=== PATIENT | female | born 1945 | race Two or more races ===

== ENCOUNTER 2019-07-24 15:19 | Inpatient (IN) | payer BC, MEDICARE, OTHER ==
[~2019-07-24] VITALS: Ht 160 cm; Wt 70.5 kg
[2019-07-24] MEDS ORDERED: SODIUM CHLORIDE 0.9% 1,000 ML IV ONE (19:08)
[2019-07-24] MEDS ORDERED: ACETAMINOPHEN 325MG TABLET PO STA (19:08)
[2019-07-24] MEDS ORDERED: FAMOTIDINE 20MG/2ML VIAL IV STA (19:08)
[2019-07-24] MEDS ORDERED: PIPERACILLIN/TAZ 3.375G PREMIX 50 ML IV ONE (19:30)
[2019-07-24] MEDS ORDERED: SODIUM CHLORIDE 0.9% 1000ML BAG (SEPSIS BOLUS) IV ONE (19:30)
[2019-07-24 19:54] LABS: HEMATOCRIT. 35.9 % (36.0-48.0); HEMOGLOBIN. 12.4 g/dL (12.0-16.0); MEAN CORPUSCULAR HEMOGLOBIN 31.5 pg (28.0-32.0); MEAN CORPUSCULAR VOLUME 91.2 fL (81.0-99.0); MEAN PLATELET VOLUME 7.8 fl (7.4-10.4); PLATELET 212 x1000/uL (130-400); RED BLOOD CELL COUNT 3.93 mill/uL (4.2-5.4); RED CELL DISTRIBUTION WIDTH 13.8 % (11.6-14.6)
[2019-07-24 20:02] LABS: CHLORIDE 105 mEq/L (98-107)
[2019-07-24 20:04] LABS: PROTHROMBIN TIME 10.3 sec (9.6-11.0)
[2019-07-24 21:16] LABS: PLATELET ESTIMATE NORMAL
[2019-07-24] MEDS ORDERED: IOHEXOL-300 100 ML BOTTLE ONE (21:56)
[2019-07-24 22:49] LABS: CLARITY URINE CLOUDY (CLEAR); COLOR URINE DARK YELLOW (YELLOW); KETONES URINE NEGATIVE (NEGATIVE); LEUKOCYTE ESTERASE URINE TRACE (NEGATIVE); NITRITE URINE NEGATIVE (NEGATIVE); OCCULT BLOOD URINE NEGATIVE (NEGATIVE); PH URINE 8.5 (4.5-8.0); PROTEIN URINE NEGATIVE (NEGATIVE); SPECIFIC GRAVITY URINE 1.033 (1.005-1.030)
[2019-07-24 23:30] VITALS: BP 119/45
[2019-07-24] MEDS ORDERED: SODIUM CHLORIDE 0.9% 1,000 ML IV SCH (23:45)
[2019-07-25] MEDS ORDERED: HYDROMORPHONE HCL/PF 2MG/ML CPJ IV PRN ×2
[2019-07-25 00:35] LABS: HEPATITIS B SURFACE ANTIGEN NEGATIVE
[2019-07-25 01:05] LABS: HEPATITIS A AB IGM NEGATIVE (NEGATIVE)
[2019-07-25] MEDS ORDERED: TRIC160 MT (01:06)
[2019-07-25] MEDS ORDERED: ESOM40CA PO (01:06)
[2019-07-25] MEDS ORDERED: CLOB15OI3 TP (01:06)
[2019-07-25] MEDS ORDERED: EZET10TA13 PO (01:06)
[2019-07-25] MEDS ORDERED: ASPI-1393 PO (01:06)
[2019-07-25] MEDS: POTASSIUM CHLORIDE INJ 30 MEQ in DEXT 5%/0.9% NACL 1,000 ML IV SCH ×4 (02:46→23:29)
[2019-07-25] MEDS: PIPERACILLIN/TAZOBACTAM 3.375 G in DEXT 5% WATER 100 ML IV SCH ×4 (03:42→20:12)
[2019-07-25 04:00] VITALS: BP 101/48
[2019-07-25 06:47] LABS: BASOPHILS % 0.3 % (0.0-2.0); HEMATOCRIT. 30.2 % (36.0-48.0); HEMOGLOBIN. 10.6 g/dL (12.0-16.0); LYMPHOCYTES % 9.5 % (20.0-50.0); MEAN CORPUSCULAR HEMOGLOBIN 32.1 pg (28.0-32.0); MEAN CORPUSCULAR VOLUME 91.1 fL (81.0-99.0); MONOCYTES % 10.9 % (2.0-8.0); NEUTROPHILS % 78.3 % (40.0-76.0); PLATELET 164 x1000/uL (130-400); RED BLOOD CELL COUNT 3.31 mill/uL (4.2-5.4); RED CELL DISTRIBUTION WIDTH 14.2 % (11.6-14.6)
[2019-07-25 06:59] LABS: CHLORIDE 109 mEq/L (98-107)
[2019-07-25 08:31] VITALS: BP 110/50
[2019-07-25] MEDS: PANTOPRAZOLE SODIUM 40 MG/VIAL IV SCH (09:45)
[2019-07-25] MEDS ORDERED: KCL 10MEQ/50ML PREMIX 50 ML IV NR (11:30)
[2019-07-25 12:36] VITALS: BP 103/61
[2019-07-25] MEDS: ONDANSETRON HCL 4MG/2ML INJ IV PRN (13:27)
[2019-07-25 16:17] VITALS: BP 126/65
[2019-07-25] MEDS: METRONIDAZOLE 500 MG PREMIX 100 ML IV SCH (17:20)
[2019-07-25 20:00] VITALS: BP 109/39
[2019-07-25] MEDS: ENOXAPARIN 40MG/0.4ML SYR SUBCUT SCH (20:13)
[2019-07-26] VITALS: BP 100/51
[2019-07-26] MEDS: KETOROLAC 15MG/ML VIAL IV PRN ×4 (00:34→22:29)
[2019-07-26] MEDS: PIPERACILLIN/TAZOBACTAM 3.375 G in DEXT 5% WATER 100 ML IV SCH ×2 (02:23→09:16)
[2019-07-26] MEDS: METRONIDAZOLE 500 MG PREMIX 100 ML IV SCH ×3 (03:08→18:05)
[2019-07-26 04:00] VITALS: BP 118/57
[2019-07-26 06:34] LABS: BASOPHILS % 0.3 % (0.0-2.0); EOSINOPHILS % 3.3 % (0.0-5.0); HEMATOCRIT. 32.3 % (36.0-48.0); HEMOGLOBIN. 11.1 g/dL (12.0-16.0); LYMPHOCYTES % 14.6 % (20.0-50.0); MEAN CORPUSCULAR HEMOGLOBIN 31.6 pg (28.0-32.0); MEAN PLATELET VOLUME 8.5 fl (7.4-10.4); MONOCYTES % 10.8 % (2.0-8.0); PLATELET 185 x1000/uL (130-400); RED BLOOD CELL COUNT 3.51 mill/uL (4.2-5.4); RED CELL DISTRIBUTION WIDTH 14.3 % (11.6-14.6)
[2019-07-26 06:36] LABS: CHLORIDE 112 mEq/L (98-107)
[2019-07-26 06:42] LABS: GAMMA GLUTAMYL TRANSPEPTIDASE 310 IU/L (7-32)
[2019-07-26 08:42] VITALS: BP 126/104
[2019-07-26] MEDS: PANTOPRAZOLE SODIUM 40 MG/VIAL IV SCH (09:15)
[2019-07-26] MEDS ORDERED: LEVOFLOXACIN 500MG PREMIX 100 ML IV SCH (12:00)
[2019-07-26 12:42] VITALS: BP 135/55
[2019-07-26] MEDS: POTASSIUM CHLORIDE INJ 30 MEQ in DEXT 5%/0.9% NACL 1,000 ML IV SCH ×2 (12:53→23:25)
[2019-07-26 16:17] VITALS: BP 97/41
[2019-07-26 20:00] VITALS: BP 141/65
[2019-07-26] MEDS: ENOXAPARIN 40MG/0.4ML SYR SUBCUT SCH (20:30)
[2019-07-26] MEDS: ONDANSETRON HCL 4MG/2ML INJ IV PRN (21:23)
[2019-07-27] VITALS: BP_SYST 129; BP_SYST 132; BP_DIAS 54; BP_DIAS 67
[2019-07-27] MEDS: METRONIDAZOLE 500 MG PREMIX 100 ML IV SCH ×3 (01:26→19:48)
[2019-07-27 04:00] VITALS: BP 141/63
[2019-07-27] MEDS: ONDANSETRON HCL 4MG/2ML INJ IV PRN ×2 (05:10→11:29)
[2019-07-27] MEDS: POTASSIUM CHLORIDE INJ 30 MEQ in DEXT 5%/0.9% NACL 1,000 ML IV SCH (06:07)
[2019-07-27 07:01] LABS: BASOPHILS % 1.1 % (0.0-2.0); HEMATOCRIT. 31.3 % (36.0-48.0); HEMOGLOBIN. 10.8 g/dL (12.0-16.0); LYMPHOCYTES % 23.8 % (20.0-50.0); MEAN CORPUSCULAR HEMOGLOBIN 31.4 pg (28.0-32.0); MEAN CORPUSCULAR VOLUME 91.6 fL (81.0-99.0); MEAN PLATELET VOLUME 8.6 fl (7.4-10.4); MONOCYTES % 13.7 % (2.0-8.0); NEUTROPHILS % 57.4 % (40.0-76.0); PLATELET 171 x1000/uL (130-400); RED BLOOD CELL COUNT 3.42 mill/uL (4.2-5.4); RED CELL DISTRIBUTION WIDTH 14.4 % (11.6-14.6)
[2019-07-27 07:04] LABS: CHLORIDE 115 mEq/L (98-107)
[2019-07-27 07:06] LABS: PARTIAL THROMBOPLASTIN TIME 28.8 sec (23.4-31.0); PROTHROMBIN TIME 10.4 sec (9.6-11.0)
[2019-07-27 08:00] VITALS: BP 140/77
[2019-07-27] MEDS: PANTOPRAZOLE SODIUM 40 MG/VIAL IV SCH (08:34)
[2019-07-27 12:00] VITALS: BP 166/65
[2019-07-27] MEDS: AZITHROMYCIN 500 MG in DEXT 5% WATER 250 ML IV SCH (12:21)
[2019-07-27] MEDS ORDERED: IOHEXOL-300 100 ML BOTTLE ONE (14:50)
[2019-07-27] MEDS ORDERED: SIMETHICONE 40 MG/0.6 ML 30ML ONE (14:50)
[2019-07-27] MEDS ORDERED: MIDAZOLAM HCL 2 MG/2 ML VIAL ONE (15:31)
[2019-07-27] MEDS ORDERED: PROPOFOL 200MG/20ML VIAL IV ONE (15:31)
[2019-07-27] MEDS ORDERED: FENTANYL CITRATE/PF 50MCG/ML 2ML VIAL ONE (15:31)
[2019-07-27] MEDS ORDERED: ROCURONIUM BROMIDE 10MG/ML VIAL 5ML IV ONE (15:31)
[2019-07-27] MEDS ORDERED: NEOSTIGMINE METHYLSULFATE 1MG/ML 10 ML VIAL ONE (15:31)
[2019-07-27] MEDS ORDERED: GLYCOPYRROLATE 0.2 MG/ML 2ML VIAL ONE ×2 (15:31→16:31)
[2019-07-27] MEDS ORDERED: ONDANSETRON HCL 4MG/2ML INJ ONE (15:57)
[2019-07-27] MEDS ORDERED: DEXAMETHASONE 4MG/ML 1ML VIAL ONE (15:57)
[2019-07-27] MEDS ORDERED: MEPERIDINE HCL/PF 25MG/ML CPJ IV PRN (16:15)
[2019-07-27] MEDS ORDERED: HYDROMORPHONE HCL/PF 2MG/ML CPJ IV PRN (16:15)
[2019-07-27] MEDS ORDERED: LABETALOL 5MG/ML SYR 20 MG/4 ML SYRINGE IV PRN (16:15)
[2019-07-27] MEDS ORDERED: ONDANSETRON HCL 4MG/2ML INJ IV PRN (16:15)
[2019-07-27 20:00] VITALS: BP 137/48
[2019-07-27] MEDS: ENOXAPARIN 40MG/0.4ML SYR SUBCUT SCH (21:48)
[2019-07-28] VITALS: BP 129/54
[2019-07-28] MEDS: METRONIDAZOLE 500 MG PREMIX 100 ML IV SCH (02:00)
[2019-07-28 04:00] VITALS: BP 137/60
[2019-07-28] MEDS: POTASSIUM CHLORIDE INJ 30 MEQ in DEXT 5%/0.9% NACL 1,000 ML IV SCH ×2 (04:13→16:25)
[2019-07-28 06:48] LABS: BASOPHILS % 0.5 % (0.0-2.0); EOSINOPHILS % 0.1 % (0.0-5.0); HEMATOCRIT. 30.7 % (36.0-48.0); HEMOGLOBIN. 10.5 g/dL (12.0-16.0); LYMPHOCYTES % 16.7 % (20.0-50.0); MEAN CORPUSCULAR HEMOGLOBIN 31.6 pg (28.0-32.0); MEAN PLATELET VOLUME 9.8 fl (7.4-10.4); MONOCYTES % 8.8 % (2.0-8.0); NEUTROPHILS % 73.9 % (40.0-76.0); PLATELET 201 x1000/uL (130-400); RED BLOOD CELL COUNT 3.33 mill/uL (4.2-5.4); RED CELL DISTRIBUTION WIDTH 13.9 % (11.6-14.6)
[2019-07-28 06:57] LABS: CHLORIDE 110 mEq/L (98-107)
[2019-07-28 08:08] VITALS: BP 145/64
[2019-07-28] MEDS ORDERED: TRAMADOL 50MG TABLET PO PRN (10:00)
[2019-07-28] MEDS: AZITHROMYCIN 500 MG in DEXT 5% WATER 250 ML IV SCH (11:53)
[2019-07-28] MEDS: PANTOPRAZOLE SODIUM 40 MG/VIAL IV SCH (11:53)
[2019-07-28 11:56] VITALS: BP 118/52
[2019-07-28] MEDS: METRONIDAZOLE 500MG TABLET PO SCH ×2 (15:11→21:55)
[2019-07-28] MEDS: MULTIVITAMINS,THER W-MINERALS TABLET PO SCH (15:11)
[2019-07-28 16:31] VITALS: BP 134/65
[2019-07-28 20:00] VITALS: BP 124/70
[2019-07-28] MEDS: ENOXAPARIN 40MG/0.4ML SYR SUBCUT SCH (21:55)
[2019-07-29] VITALS: BP 129/64
[2019-07-29] MEDS ORDERED: POTASSIUM CHLORIDE INJ 30 MEQ in DEXT 5%/0.9% NACL 1,000 ML IV SCH ×2
[2019-07-29 04:00] VITALS: BP 142/75
[2019-07-29] MEDS: METRONIDAZOLE 500MG TABLET PO SCH (06:32)
[2019-07-29 06:59] LABS: BASOPHILS % 0.8 % (0.0-2.0); EOSINOPHILS % 2.3 % (0.0-5.0); HEMATOCRIT. 32.2 % (36.0-48.0); HEMOGLOBIN. 11.1 g/dL (12.0-16.0); LYMPHOCYTES % 23.2 % (20.0-50.0); MEAN CORPUSCULAR HEMOGLOBIN 31.7 pg (28.0-32.0); MEAN CORPUSCULAR VOLUME 92.2 fL (81.0-99.0); MEAN PLATELET VOLUME 8.7 fl (7.4-10.4); MONOCYTES % 12.3 % (2.0-8.0); NEUTROPHILS % 61.4 % (40.0-76.0); PLATELET 191 x1000/uL (130-400); RED BLOOD CELL COUNT 3.49 mill/uL (4.2-5.4); RED CELL DISTRIBUTION WIDTH 14.3 % (11.6-14.6)
[2019-07-29 08:00] VITALS: BP 150/74
[2019-07-29] MEDS ORDERED: AZITHROMYCIN 500 MG TABLET PO SCH (09:00)
[2019-07-29] MEDS: PANTOPRAZOLE SODIUM 40 MG/VIAL IV SCH (09:09)
[2019-07-29] MEDS: MULTIVITAMINS,THER W-MINERALS TABLET PO SCH (09:09)
[2019-07-29] MEDS: ONDANSETRON HCL 4MG/2ML INJ IV PRN (09:09)
== END 2019-07-29 14:35 | disposition home or self-care (01) | DRG 872 ==
LOC: ER 15:51 → 6WST 22:43 → EDBEDREQ 22:46 → EDBEDREQTM 22:46 → ENRESERV 22:54 → 6WST 07-27 21:37
PROVIDERS: ADMIT Internal Medicine Critical Care Medicine; ATTEND Internal Medicine Critical Care Medicine
PROC: 0FJB8ZZ Inspection of Hepatobiliary Duct, Via Natural or Artificial Opening Endoscopic (ICD-10-PCS; principal; 2019-07-27)
DX: A41.9 Sepsis, unspecified organism (principal); K80.63 Calculus of gallbladder and bile duct with acute cholecystitis with obstruction; N39.0 Urinary tract infection, site not specified; K44.9 Diaphragmatic hernia without obstruction or gangrene; E78.5 Hyperlipidemia, unspecified; E77.8 Other disorders of glycoprotein metabolism; D53.9 Nutritional anemia, unspecified; E87.6 Hypokalemia; K76.0 Fatty (change of) liver, not elsewhere classified; T36.8X5A Adverse effect of other systemic antibiotics, initial encounter; Z96.659 Presence of unspecified artificial knee joint; K21.9 Gastro-esophageal reflux disease without esophagitis; N28.1 Cyst of kidney, acquired; Z90.710 Acquired absence of both cervix and uterus; Y92.89 Other specified places as the place of occurrence of the external cause; Z79.899 Other long term (current) drug therapy; Z88.0 Allergy status to penicillin; Z88.1 Allergy status to other antibiotic agents; Z98.84 Bariatric surgery status; Z79.82 Long term (current) use of aspirin
CPT/HCPCS: 36415; 71045; 74177; 74181; 76705; 78227; 80048; 80076; 81003; 82105; 82248; 82962; 82977; 83605; 86705; 86709; 86803; 87340; 93005; 96361; 96365; 96375; 99291; A9537; C1726; C1769; C9113; J0456; J1100; J1170; J1650; J1885; J1956; J2250; J2405; J2543; J2704; J2710; J3010; J3480; J3490; J7030; J7042; J7060; Q9967

== ENCOUNTER 2020-11-28 08:52 | Emergency (ER) | payer BC ==
[~2020-11-28] VITALS: Ht 167.6 cm; Wt 77.0 kg
[2020-11-28 09:25] LABS: CLARITY URINE CLEAR (CLEAR); COLOR URINE YELLOW (YELLOW); KETONES URINE NEGATIVE (NEGATIVE); LEUKOCYTE ESTERASE URINE TRACE (NEGATIVE); NITRITE URINE NEGATIVE (NEGATIVE); OCCULT BLOOD URINE NEGATIVE (NEGATIVE); PROTEIN URINE 1+ (NEGATIVE); SPECIFIC GRAVITY URINE 1.014 (1.005-1.030); UROBILINOGEN URINE 0.2 E.U./dL (0.2-1.0)
[2020-11-28 09:42] LABS: HEMATOCRIT. 33.4 % (36.0-48.0); HEMOGLOBIN. 11.2 g/dL (12.0-16.0); MEAN CORPUSCULAR HEMOGLOBIN 30.1 pg (28.0-32.0); MEAN CORPUSCULAR VOLUME 89.7 fL (81.0-99.0); MEAN PLATELET VOLUME 7.6 fl (7.4-10.4); PLATELET 250 x1000/uL (130-400); RED BLOOD CELL COUNT 3.73 mill/uL (4.2-5.4); RED CELL DISTRIBUTION WIDTH 13.6 % (11.6-14.6)
[2020-11-28 09:51] LABS: CHLORIDE 104 mEq/L (98-107)
[2020-11-28 10:00] LABS: CREATINE KINASE 58 IU/L (26-192)
[2020-11-28 10:02] LABS: PROTHROMBIN TIME 10.4 sec (9.6-11.0)
[2020-11-28 10:12] LABS: PLATELET ESTIMATE NORMAL
[2020-11-28] MEDS ORDERED: VANCOMYCIN 1 G PREMIX 200 ML IV SCH (10:45)
[2020-11-28] MEDS ORDERED: KETOROLAC 15MG/ML VIAL IV NR (10:45)
[2020-11-28] MEDS ORDERED: ONDANSETRON HCL 4MG/2ML INJ IV ONE (11:30)
[2020-11-28] MEDS ORDERED: SODIUM CHLORIDE 0.9% 1,000 ML IV ONE (11:30)
[2020-11-28] MEDS ORDERED: AZTREONAM 1 G in DEXTROSE 5% WATER 50 ML IV SCH (13:00)
[2020-11-28 14:19] VITALS: BP 95/39
[2020-11-28] MEDS ORDERED: IOHEXOL-300 100 ML BOTTLE ONE (15:49)
== END 2020-11-28 16:45 | disposition short-term general hospital (02) ==
LOC: ER 08:52 → CANBEDREQ 13:20 → ER 16:45
DX: B17.9 Acute viral hepatitis, unspecified (principal); R10.32 Left lower quadrant pain; R11.0 Nausea; K76.0 Fatty (change of) liver, not elsewhere classified; D64.9 Anemia, unspecified; J98.11 Atelectasis; Z90.49 Acquired absence of other specified parts of digestive tract
CPT/HCPCS: 36415; 71045; 74177; 80053; 81003; 82550; 82728; 83605; 83615; 83690; 84145; 84484; 85025; 85384; 85610; 86140; 86850; 86900; 86901; 87040; 87086; 93005; 96361; 96365; 96375; 99285; J1885; J2405; J3370; J7030; J7040; Q9967; J3490; J7060